=== PATIENT | female | born 1960 | race Caucasian/White ===

== ENCOUNTER 2025-02-14 21:45 | Emergency (ER) | payer BC, SELFPAY ==
[2025-02-14 21:47] VITALS: BP 135/82
[2025-02-14 23:10] VITALS: BP 133/75
[2025-02-14 23:11] VITALS: BMI 26.6
[2025-02-15] VITALS: BP 131/78
--- NOTE | 2025-02-15 00:12 | ED.GENMED ---
History of Present Illness
General
Chief Complaint: Musculo-Skeletal Complaint
Source: patient and spouse
Exam Limitations: none
Time Seen by Provider: 02/14/25 23:59
Nursing documentation reviewed up to this point in time: agreed with
History of Present Illness
History of Present Illness:
This is a 64-year-old woman who presents with several week history of mild right knee pain. She believes she may have injured it while exercising. Today however patient states she heard and felt a pop in her right knee with marked increase in pain
as well as swelling of her right knee. She took Advil 400 mg at 3 PM and then again at 7 PM with moderate improvement in pain. She has also been icing her knee and notes that swelling has markedly improved. She denies fall, denies weakness or
numbness.
No history of similar episodes of pain.
Due to ongoing right knee pain she called her PCP earlier today and has an appointment for physical therapy evaluation tomorrow. This was prior to onset of acute/worsening pain.
Past History
Past History
ED Past Medical History: GERD and Hypercholesterolemia
ED Past Surgical History: Negative Cardiac
Social History
Tobacco: Non-smoker
Personal:
Living: with family
Employment: Employed
Family History
Family History: Negative Early CAD or Sudden
Phy Exam
Physical Exam
Physical Exam:
GENERAL: 64-year-old woman appears her stated age, bright and alert, pleasant, appears in no acute distress. is accompanying.
EYE: anicteric
NECK: Supple, nontender
ENT: oral mucosa is moist. No rhinorrhea.
CARDIAC: Regular rate and rhythm. no murmur.
LUNGS: Clear breath sounds bilaterally, no acute respiratory distress, no wheezes/rales/rhonchi
ABDOMEN: Soft, nondistended, without focal tenderness
NEUROLOGICAL: Alert and oriented x3, no focal neuro deficits.
SKIN: Warm and dry, normal color, skin intact. No rash.
MUSCULOSKELETAL: No C/C/E. peripheral pulses are full and equal b/l. Right knee with moderate tenderness anterosuperior region as well as mild to moderate tenderness posterior knee. Mild soft tissue swelling superior anterior knee. Moderately
restricted range of motion related to pain. No crepitus nor definitive laxity. No tenderness to the thigh nor lower leg.
PSYCH: Normal and appropriate interaction.
Course
Orders/Labs/Results
Orders:
Orders
02/14/25 21:58
Knee, Right 4 or More Views [CR Knee- Right 4 Or More View*] Urgent
Comment:
Reason For Exam: pain
02/15/25 00:09
Knee Immobilizer Right-Treatme ONCE
Vital Signs
Initial and Last Documented VS:
Initial Vital Signs
Temp Pulse Resp BP Pulse Ox
98 F 82 17 135/82 98
02/14/25 21:47 02/14/25 21:47 02/14/25 21:47 02/14/25 21:47 02/14/25 21:47
Last Documented Vital Signs
Temp Pulse Resp BP Pulse Ox
98 F 82 17 131/78 96
02/14/25 21:47 02/14/25 21:47 02/14/25 21:47 02/15/25 00:00 02/15/25 00:00
MDM/Problems Addressed
Differential Diagnosis Includes:
Patient presents with acute pain right knee with note of mild pain over the past several weeks.
Concern for acute sprain/strain, other consideration is fracture.
X-ray is unremarkable save for suprapatellar joint effusion.
Concern for sprain/strain, internal derangement however reassuring that there is no significant joint effusion.
Patient arrives with her own crutches. Will assess for appropriate height and recommend she continue with nonweightbearing.
Will place in knee immobilizer with referral to orthopedics for further evaluation.
Recommend continuing with conservative measures, NSAID, elevation, ice.
She has been offered pain medication which she declines, will take ibuprofen upon returning home.
*Radiology
Radiology exam reviewed: radiology read reviewed
*Pulse Oximetry
Patient hypoxic: no
*Critical Care Note
Total Time (30-74mins, 75-104mins- exclusive of procedures): Not Applicable
ED Attending Note
-
Portions of this chart may have been created with voice recognition software.� Occasional wrong word or��sound alike� substitutions may have occurred due to the inherent limitations of voice recognition software.
Discharge Plan
Departure
Patient Disposition: Home (Routine Discharge)
Date of Disposition: 02/15/25
Time of Disposition: 00:12
Patient with high blood pressure during this ER visit?: No
Condition: Good
Discharge Problem:
acute sprain/strain right knee
Instructions: How to Use Crutches, Knee Immobilizer (DC), Knee Sprain (DC)
Prescriptions:
No Action
esomeprazole magnesium [Nexium] 20 MG capsule,delayed release(DR/EC)
1 tab PO DAILY
Referrals:
Alycia Benedict MD [Family Provider, Family Practice] - Call in 1-3 days for appt
Carlos Christie MD [Active, Orthopedics] - Call in 1-3 days for appt
Interventions
Interventions:
*Risk Screen - Suicide Last Done: 02/14/25 21:47
*General Assessment Last Done: 02/14/25 21:47
*Neglect/Abuse Screening Last Done: 02/14/25 21:47
*ED- Fall Risk Assessment Last Done: 02/14/25 23:11
*ED COVID-19 Vaccine History Last Done: 02/14/25 23:11
ED-Musculoskeletal Assessment Last Done: 02/14/25 23:11
Discharge Date and Time
Print Language: [place]
== END 2025-02-15 00:37 | disposition home or self-care (01) ==
LOC: EMR 21:45
PROVIDERS: EMERGENCY PHYSICIAN Emergency Medicine; FAMILY PHYSICIAN Family Medicine
DX: M25.561 Pain in right knee (principal); S83.91XA Sprain of unspecified site of right knee, initial encounter; E78.00 Pure hypercholesterolemia, unspecified
CPT/HCPCS: 99283; 29505; 73564